=== PATIENT | male | born 1980 | race Caucasian/White ===

== ENCOUNTER 2017-02-01 00:16 | Emergency (ER) ==
[2017-02-01 00:16] VITALS: BMI 28.2
[2017-02-01 00:27] VITALS: BP 106/62; TEMP 97
--- NOTE | 2017-02-01 00:39 | ED.PDOC ---
General ED Provider: Dr. MOSES RIVERA-ER Chief Complaint: Body Fluid Exposure Stated Complaint: i had some blood on my hands and some small cuts Time Seen by Physician: 00:20 Mode of Arrival: Walk-In Information Source: Patient Exam Limitations: No limitations Nursing and Triage Documentation Reviewed and Agree: Yes Skin Complaint Exam - Skin/Soft Tissue Complaint/Exam Onset/Duration: tonight Symptoms Are: Still present Timing: Constant Initial Severity: Mild Current Severity: Mild Location: hands Character: Denies: Redness, Swelling, Raised, Painful Aggravating: Reports: None Alleviating: Reports: None Associated Signs and Symptoms: Denies: Fever, Chills, Itching, Drainage, Bruising, Tenderness, Red streaks, Joint swelling Related Surgical History: Reports: None Recent Exposure to Others w/Similar Symptoms: No Joint Tenderness Present: No Differential Diagnoses: Other Review of Systems - Review Of Systems Constitutional: Reports: No symptoms Eyes: Reports: No symptoms Ears, Nose, Mouth, Throat: Reports: No symptoms Respiratory: Reports: No symptoms Cardiac: Reports: No symptoms GI: Reports: No symptoms : Reports: No symptoms Musculoskeletal: Reports: No symptoms Skin: Reports: Other Neurological: Reports: No symptoms Endocrine: Reports: No symptoms Hematologic/Lymphatic: Reports: No symptoms All Other Systems: Reviewed and Negative Past Medical History - Past Medical History Previously Healthy: No Endocrine: Reports: None Cardiovascular: Reports: None Respiratory: Reports: Asthma Hematological: Reports: None Gastrointestinal: Reports: None Genitourinary: Reports: None Neuro/Psych: Reports: None Musculoskeletal: Reports: None Cancer: Reports: None - Surgical History General Surgical History: Reports: None - Family History Family History: Reports: None - Social History Smoking Status: Never smoker Hx Substance Use: No Alcohol Screening: Occasionally Lives: With family Physical Exam - Physical Exam Appearance: Well-appearing, No pain distress, Well-nourished Eyes: FEDE, EOMI, Conjunctiva clear ENT: Ears normal, Nose normal, Oropharynx normal Neck: Supple Respiratory: Airway patent, Breath sounds clear, Breath sounds equal, Respirations nonlabored Cardiovascular: RRR, Pulses normal, No rub, No murmur GI/: Soft, Nontender, No masses, Bowel sounds normal, No Organomegaly Musculoskeletal: Normal strength Skin: Warm, Dry, Normal color Neurological: Sensation intact Psychiatric: Affect appropriate Critical Care Note - Critical Care Note Total Time (mins): 0 Course - Course Orders, Labs, Meds: Orders Category Date Time Status ALT [ALANINE AMINOTRANSFERASE] Stat LAB 02/01/17 00:47 Ordered HCV ANTIBODY Stat LAB 02/01/17 00:50 Ordered HCV RNA BY PCR Stat LAB 02/01/17 00:50 Ordered HEPATITIS B CORE ANTIBODY Stat LAB 02/01/17 00:48 Ordered HEPATITIS B SURFACE ANTIBODY Stat LAB 02/01/17 00:48 Ordered HEPATITIS BE ANTIGEN Stat LAB 02/01/17 00:50 Ordered HEPATITIS PANEL, ACUTE Stat LAB 02/01/17 00:49 Ordered HIV RAPID TEST [RAPID HIV SCREEN] Stat LAB 02/01/17 00:49 Ordered RAPID PLASMA REAGIN Stat LAB 02/01/17 00:47 Ordered corine notes his tetanus is up to date and declines any post exposure prophylaxis for hepatitis or hiv as he feels his risk is small and i concur Vital Signs: Temp Pulse Resp BP Pulse Ox 02/01/17 00:17 97 F L 56 L 18 106/62 95 Departure - Departure Time of Disposition: 00:39 Disposition: HOME SELF-CARE Discharge Problem: Employee exposure to body fluids Instructions: Postexposure Prophylaxis (ED) Condition: Good Pt referred to PMD for follow-up: Yes Additional Instructions: talk to HR tomorrow as well as inf dis for repeat blood test protocol Allergies/Adverse Reactions: Allergies No Known Allergies Allergy (Verified 02/01/17 00:27) Home Medications: Ambulatory Orders Albuterol Sulfate [Ventolin Hfa] 8 gm IH TID PRN 02/01/17 Disposition Discussed With: Patient
[2017-02-01 01:36] LABS: HIV INTERNAL QC INTERNAL QC VALID; HIV-1 p24 ANTIGEN SCREEN NEGATIVE (NEGATIVE); HIV-1/2 ANTIBODY SCREEN NEGATIVE (NEGATIVE)
[2017-02-02 06:11] LABS: HEPATITIS B CORE ANTIBODY Negative (Negative); HEPATITIS B SURFACE ANTIBODY Non Reactive (.)
[2017-02-03 08:37] LABS: HEPATITIS C QUANTITATION HCV Not Detected IU/mL (.)
== END 2017-02-01 01:04 | disposition home or self-care (01) ==
LOC: ED 00:16
DX: Z77.21 Contact with and (suspected) exposure to potentially hazardous body fluids (principal); Y99.0 Civilian activity done for income or pay
CPT/HCPCS: 36415; 80074; 84460; 86592; 86704; 86706; 86803; 87350; 87522; 99283

== ENCOUNTER 2017-03-03 09:00 | Outpatient (CLI) ==
--- NOTE | 2017-03-03 09:19 | DI ---
EXAM: Two views of the chest. History: Short of breath and wheezing Comparison: Chest radiograph 02/19/2016 Findings: Heart size is normal. No focal consolidation. No appreciable pleural fluid and no pneumo thorax. No acute osseous abnormalities. Impression: No acute cardiopulmonary process. No change compared to the prior study
== END 2017-03-03 09:01 | disposition home or self-care (01) ==
LOC: RAD 09:00
PROVIDERS: ATTEND Family Medicine
DX: Z00.01 Encounter for general adult medical examination with abnormal findings (principal); R06.02 Shortness of breath; R06.2 Wheezing; R05 Cough

== ENCOUNTER 2017-05-17 07:45 | Outpatient (CLI) | END 2017-05-17 07:46 | disposition home or self-care (01) | LOC: LAB 07:45 | PROVIDERS: ATTEND General Practice | DX: Z77.21 Contact with and (suspected) exposure to potentially hazardous body fluids (principal) ==

== ENCOUNTER 2017-10-07 09:01 | Outpatient (CLI) | END 2017-10-07 09:02 | disposition home or self-care (01) | LOC: LAB 09:01 | PROVIDERS: ATTEND General Practice | DX: Z77.21 Contact with and (suspected) exposure to potentially hazardous body fluids (principal) | CPT/HCPCS: 36415 ==